=== PATIENT | male | born 1950 | race Caucasian/White ===

== ENCOUNTER → 2021-12-24 | Day surgery (SDC) | payer OTHER ==
[~2021-12-24] VITALS: Ht 177.8 cm; Wt 117.9 kg
[~2021-12-24] MED LIST: AMARYL2 MG PO; BACLOFEN 10MG T10 MG PO; DICLOFENAC SODI75 MG PO; FLONASE ALLER15.8 ML; LIPITOR20 MG PO; LISINOPRIL-HCT1 EAC1 PO; LYRICA25 MG PO; METFORMIN HCL500 M2 PO; METFORMIN HCL500 MG PO; MICRONASE5 MG PO; NEURONTIN300 MG PO; NORVASC5 MG PO; PREVACID30 M1 PO; TOUJEO SC; VICTOZA 2-0.6 MG/0.1 SC
[2021-12-24 06:42] LABS: HCT 36.4 % (42.0-52.0); HGB 12.4 g/dl (13.2-18.0); MCH 30.2 pg (25.0-31.0); MCHC 34.1 g/dL (32.0-36.0); MCV 88.8 fL (78.0-100.0); MPV 9.6 fL (6.0-9.5); RBC 4.1 M/uL (4.70-6.00); RDW 14.2 % (11.5-14.0); WBC 8.9 K/uL (4.0-10.5)
[2021-12-24 06:58] LABS: BUN/CREAT RATIO (CALC) 20.8 RATIO; CREATININE 1.06 mg/dL (0.67-1.17); POTASSIUM 3.8 mmol/L (3.5-5.1)
== END | disposition home or self-care (01) ==
LOC: FAS 06:01
PROVIDERS: Anesthesiology; Legal Medicine
DX: G56.02 Carpal tunnel syndrome, left upper limb (principal); G56.22 Lesion of ulnar nerve, left upper limb; I10 Essential (primary) hypertension; E11.9 Type 2 diabetes mellitus without complications; E78.5 Hyperlipidemia, unspecified; E78.00 Pure hypercholesterolemia, unspecified
CPT/HCPCS: 36415; 80048; 82962; 93005; J0690; J1100; J1885; J2250; J2405; J2704; J2795; J3010; J7120